=== PATIENT | male | born 1990 | race African-American/Black ===

== ENCOUNTER 2017-03-16 01:33 | Inpatient (IN) | payer BC, SELFPAY ==
[2017-03-16 01:57] LABS: #Basophils 0.1 thou/uL (0.0-0.2); #Lymphocytes 2.1 thou/uL (1.20-3.40); #Monocytes 0.7 thou/uL (0.11-0.59); #Neutrophils 9.3 thou/uL (1.40-6.50); %Basophils 0.5 % (0.0-1.0); %Eosinophils 0.1 % (0.0-10.0); %Neutrophils 76.4 % (42.0-75.0); Hemoglobin 16.4 g/dL (14.0-18.0); Mean Corpuscular HGB CONC 33.1 g/dL (32.0-36.0); Mean Corpuscular Hemoglobin 28.3 pg (27.0-31.0); Mean Corpuscular Volume 85.5 fl (80.0-94.0); Mean Platelet Volume 7.8 fL (7.4-10.4); Platelet Count 208 thou/uL (130-400); RBC Distribution Width 13.3 % (11.5-14.5); Red Blood Cell (RBC) Count 5.79 mill/uL (4.70-6.10); White Blood Cell (WBC) Count 12.2 thou/uL (4.8-10.8)
[2017-03-16] MEDS ORDERED: hydrALAZINE 20 MG/ML VIAL SLOW IVP PRN (03:35)
[2017-03-16] MEDS ORDERED: Acetaminophen 500 MG TAB PO PRN (03:35)
[2017-03-16] MEDS ORDERED: Dextrose 5% in Water 1,000 ML IV PRN (03:35)
[2017-03-16] MEDS ORDERED: Ondansetron ODT 4 MG TAB PO PRN (03:35)
[2017-03-16] MEDS ORDERED: Cyclobenzaprine 10 MG TAB PO PRN (03:35)
[2017-03-16] MEDS ORDERED: Dextrose 50% Abboject 50 ML SYRINGE SLOW IVP PRN (03:35)
[2017-03-16] MEDS ORDERED: Morphine 4 MG/ML Carpuject IVP PRN (03:35)
[2017-03-16] MEDS: traMADol HCl 50 MG TAB PO SCH ×4 (06:13→23:21)
[2017-03-16] MEDS: Sodium Chloride 0.9% 1,000 ML IV SCH ×2 (06:17→13:14)
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
[2017-03-16 07:46] LABS: Anion Gap 15 mmol/L (10-20); BUN (Urea Nitrogen) 12 mg/dL (8.9-20.6); Calc. Creatinine Clearance 183 mL/min (70-130); Carbon Dioxide 24 mmol/L (22-29); Chloride 107 mmol/L (98-107); Estimated GFR-MDRD Greater than 90; Glucose 85 mg/dL (70-105); Magnesium 2.1 mg/dL (1.6-2.6); Phosphorus 3.8 mg/dL (2.3-4.7); Potassium 3.8 mmol/L (3.5-5.1); Sodium 142 mmol/L (136-145)
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
[2017-03-16] MEDS ORDERED: Famotidine/PF 20 mg/2ml Vial SLOW IVP SCH (09:00)
[2017-03-16] MEDS: Ondansetron HCl/PF 4 MG/2 ML Vial IVP PRN ×2 (09:43→21:30)
[2017-03-16 10:00] LABS: Hemoglobin 15.1 g/dL (14.0-18.0)
[2017-03-16] MEDS ORDERED: Acetaminophen 500 MG TAB PO SCH (10:00)
[2017-03-16] MEDS: Acetaminophen 500 MG TAB PO SCH ×3 (13:15→23:20)
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
[2017-03-16] MEDS ORDERED: ISOVUE-370 76%-LOCM 1 ML ONE (16:38)
[2017-03-16 18:48] LABS: Hemoglobin 14.5 g/dL (14.0-18.0)
[2017-03-16] MEDS ORDERED: Morphine 5 MG/ML SYRINGE SLOW IVP PRN (20:02)
[2017-03-16] MEDS: Famotidine 20 MG TAB PO SCH (20:04)
[2017-03-16] MEDS: traMADol HCl 50 MG TAB PO PRN (20:05)
--- NOTE | 2017-03-16 21:32 | CT ---
CT ANGIO OF NECK PERFORMED WITH INTRAVENOUS CONTRAST ENHANCEMENT WITH 3D RECONSTRUCTIONS: 03/16/17 HISTORY: Evaluation for vertebral artery injury. Patient has a history of a C6-7 transverse process fracture. The lung bases are clear. Thyroid gland appears unremarkable. Vocal cord region is normal in appearan ce. Parapharyngeal spaces are clear. The parotid and submandibular glands are unremarkable. No signif icant jugular chain adenopathy. The visualized brain parenchyma is unremarkable. There is some bilateral ethmoid and maxillary mucosa l disease and a small air fluid level within the right maxillary sinus. There is a more bovine type origin of the left common carotid from the innominate. The common carotid and internal carotid arteries are normal in caliber without evidence for stenosis. There is an anterior process fracture at C6-7 involving the tip of the anterior process. The vertebra l artery appears normal in caliber and I see no evidence for dissection. No change in caliber of the vertebral arteries which are codominant in appearance. IMPRESSION: No evidence of vertebral artery injury. POS: [facility]
[2017-03-17 03:19] VITALS: BMI 29.5
[2017-03-17 04:48] LABS: #Eosinphils 0.1 thou/uL (0.0-0.7); #Lymphocytes 1.3 thou/uL (1.20-3.40); #Monocytes 0.8 thou/uL (0.11-0.59); %Basophils 0.4 % (0.0-1.0); %Lymphocytes 20.5 % (21.0-51.0); %Monocytes 12.3 % (0.0-10.0); %Neutrophils 65.9 % (42.0-75.0); Hemoglobin 14.4 g/dL (14.0-18.0); Mean Corpuscular HGB CONC 33.1 g/dL (32.0-36.0); Mean Corpuscular Hemoglobin 28.9 pg (27.0-31.0); Mean Corpuscular Volume 87.2 fl (80.0-94.0); Mean Platelet Volume 7.9 fL (7.4-10.4); Platelet Count 184 thou/uL (130-400); RBC Distribution Width 13.2 % (11.5-14.5); Red Blood Cell (RBC) Count 4.97 mill/uL (4.70-6.10); White Blood Cell (WBC) Count 6.1 thou/uL (4.8-10.8)
[2017-03-17 04:53] LABS: Anion Gap 13 mmol/L (10-20); BUN (Urea Nitrogen) 9 mg/dL (8.9-20.6); Calc. Creatinine Clearance 202 mL/min (70-130); Calcium 9.4 mg/dL (7.8-10.44); Carbon Dioxide 28 mmol/L (22-29); Chloride 101 mmol/L (98-107); Estimated GFR-MDRD Greater than 90; Glucose 96 mg/dL (70-105); Potassium 3.9 mmol/L (3.5-5.1); Sodium 138 mmol/L (136-145)
[2017-03-17] MEDS: Acetaminophen 500 MG TAB PO SCH ×2 (05:24→11:38)
[2017-03-17] MEDS: traMADol HCl 50 MG TAB PO SCH ×2 (05:25→11:36)
[2017-03-17] MEDS: traMADol HCl 50 MG TAB PO PRN ×2 (05:25→11:37)
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
[2017-03-17] MEDS: Famotidine 20 MG TAB PO SCH (08:59)
[2017-03-17] MEDS ORDERED: FLU VACC QS2017-18 36 mo. & older 0.5 ML SYRINGE IM ONE (09:00)
--- NOTE | 2017-03-17 10:29 | RAD ---
2 VIEWS RIGHT HIP: Date: 03/17/17 HISTORY: Left hip pain. FINDINGS: No obvious acute fracture is visualized, although the AP projection is underpenetrated. There is no e vidence of a dislocation or other osseous abnormality. IMPRESSION: No acute osseous abnormality left hip. POS: [facility]
[2017-03-17 12:04] VITALS: BP 134/78; TEMP 98.5
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
== END 2017-03-17 12:35 | disposition home or self-care (01) | DRG 184 ==
LOC: ERS 01:33 → IMCU/EMU 03:20 → SURG A 19:21
PROVIDERS: ADMIT Surgery; ATTEND Surgery
DX: S22.20XA Unspecified fracture of sternum, initial encounter for closed fracture (principal); S36.113A Laceration of liver, unspecified degree, initial encounter; S12.500A Unspecified displaced fracture of sixth cervical vertebra, initial encounter for closed fracture; S32.029A Unspecified fracture of second lumbar vertebra, initial encounter for closed fracture; S30.0XXA Contusion of lower back and pelvis, initial encounter; S12.600A Unspecified displaced fracture of seventh cervical vertebra, initial encounter for closed fracture; V89.2XXA Person injured in unspecified motor-vehicle accident, traffic, initial encounter
CPT/HCPCS: 36415; 70498; 80048; 80307; 83735; 84100; 85025; 94640; 96360; G0390; G8978-GP-CI; G8979-GP-CI; J2405; J7620; S0028